=== PATIENT | female | born 1975 | race Caucasian/White ===

== ENCOUNTER 2021-04-05 13:11 | Emergency (ER) | payer OTHER ==
[~2021-04-05] VITALS: Ht 160 cm; Wt 67.0 kg
[~2021-04-05 13:11] MED LIST: AMITRIPTYLIN25 MG PO; ASPIRIN 81 LOW81 MG PO; CYCLOBENZAPRINE5 MG PO; DICLOFENAC75 MG PO; FISH OIL1 CAP PO; HYDRALAZINE10 M2 PO; LYRICA150 MG PO; PROPRAN/HCT1 PO; TRAMADOL HCL50 MG PO; VIT A & D PO; [UNRECOGNIZED DRUG - SUPPLY] PO
[2021-04-05] MEDS ORDERED: BACITRACIN500 UNIT/G TOP (13:34)
[2021-04-05] MEDS ORDERED: FLOXIN OTIC0.3 % AS (13:34)
[2021-04-05 14:04] VITALS: BP 170/79
[2021-07-27] MEDS ORDERED: ATIVAN0.5 MG PO (08:32)
[2021-07-27] MEDS ORDERED: MEDDOSEPAK PO (08:59)
== END 2021-04-05 14:00 | disposition home or self-care (01) ==
LOC: ED 13:11
DX: T24.231A Burn of second degree of right lower leg, initial encounter (principal); H60.91 Unspecified otitis externa, right ear; D89.89 Other specified disorders involving the immune mechanism, not elsewhere classified; X03.0XXA Exposure to flames in controlled fire, not in building or structure, initial encounter

== ENCOUNTER 2021-09-28 11:22 | Emergency (ER) | payer OTHER ==
[~2021-09-28] VITALS: Ht 160 cm; Wt 64.0 kg
[~2021-09-28 11:22] MED LIST changes: +ATIVAN0.5 MG PO; +BACITRACIN500 UNIT/G TOP; +FLEXERIL5 M1 PO; +FLOXIN OTIC0.3 % AS; +MEDDOSEPAK PO
[2021-09-28 12:03] LABS: HEMATOCRIT 46.7 % (37.0-47.0); HEMOGLOBIN 15.3 g/dl (12.0-16.0); IMMATURE GRANULOCYTES 0.4 % (0.0-5.0); MEAN CELL VOLUME 102.6 fL CALC (80.0-100.0); MEAN CORPUSCULAR HGB 33.6 pG CALC (26.0-32.0); MEAN CORPUSCULAR HGB CONC 32.8 g/dL CAL (32.0-36.0); NEUT# 7.39 thou/uL (2.00-7.15); RED BLOOD COUNT 4.55 mill/uL (4.20-5.60); RED CELL DISTRI WIDTH 12.4 % (11.5-15.5)
[2021-09-28 12:27] LABS: ALBUMIN 4.6 g/dL (3.2-5.0); ALKALINE PHOSPHATASE 64 u/l (38-126); ANION GAP 13 (6-22 (CALC)); BILIRUBIN, TOTAL 0.5 mg/dL (0.0-1.4); BUN 15 mg/dL (7-17); BUN/CREATININE RATIO 25 (12-20 (CALC)); CARBON DIOXIDE 24 mmol/l (22-30); CHLORIDE 107 mmol/l (95-108); CREATININE 0.6 mg/dL (0.5-1.0); GFR > 60 ML/MIN (>=60 (CALC)); GFR FOR AFR.AMER. > 60 ML/MIN (>=60 (CALC)); SGOT/AST 22 u/l (14-36); SODIUM 141 mmol/l (137-146); TOTAL PROTEIN 7.5 g/dL (6.3-8.2)
[2021-09-28 12:57] LABS: TSH, 3RD GENERATION 0.96 uIU/mL (0.47 - 4.68)
[2021-09-28 13:06] VITALS: BP 156/72
== END 2021-09-28 13:20 | disposition home or self-care (01) ==
LOC: ED 11:22
PROVIDERS: Family Medicine
DX: O99.340 Other mental disorders complicating pregnancy, unspecified trimester (principal); F41.9 Anxiety disorder, unspecified; O10.919 Unspecified pre-existing hypertension complicating pregnancy, unspecified trimester; O99.119 Other diseases of the blood and blood-forming organs and certain disorders involving the immune mechanism complicating pregnancy, unspecified trimester; D89.89 Other specified disorders involving the immune mechanism, not elsewhere classified; O99.891 Other specified diseases and conditions complicating pregnancy; M79.7 Fibromyalgia; O99.330 Smoking (tobacco) complicating pregnancy, unspecified trimester; F17.290 Nicotine dependence, other tobacco product, uncomplicated; Z3A.00 Weeks of gestation of pregnancy not specified

== ENCOUNTER 2022-01-02 13:57 | Emergency (ER) | payer MEDICARE, OTHER ==
[~2022-01-02] VITALS: Ht 160 cm; Wt 59.0 kg
[2022-01-02 15:29] VITALS: BP 128/73
== END 2022-01-02 15:34 | disposition home or self-care (01) ==
LOC: ED 13:57
DX: S86.912A Strain of unspecified muscle(s) and tendon(s) at lower leg level, left leg, initial encounter (principal); I10 Essential (primary) hypertension; D89.89 Other specified disorders involving the immune mechanism, not elsewhere classified; F17.200 Nicotine dependence, unspecified, uncomplicated; Y04.2XXA Assault by strike against or bumped into by another person, initial encounter; Y92.009 Unspecified place in unspecified non-institutional (private) residence as the place of occurrence of the external cause

== ENCOUNTER 2022-05-23 13:23 | Emergency (ER) | payer MEDICARE, MEDICAID ==
[~2022-05-23] VITALS: Ht 160 cm; Wt 65.0 kg
[2022-05-23] VITALS (7 sets, daily range): BP systolic 107–185; BP diastolic 82–127
[2022-05-23] MEDS ORDERED: KEFLEX500 MG PO (16:22)
[2022-05-23] MEDS ORDERED: PERCOCET 5/321 COMBO PO (16:22)
== END 2022-05-23 16:45 | disposition home or self-care (01) ==
LOC: ED 13:23
PROC: 0HQGXZZ Repair Left Hand Skin, External Approach (ICD-10-PCS; principal; 2022-05-23)
DX: S61.221A Laceration with foreign body of left index finger without damage to nail, initial encounter (principal); I10 Essential (primary) hypertension; M79.7 Fibromyalgia; D89.89 Other specified disorders involving the immune mechanism, not elsewhere classified; F17.290 Nicotine dependence, other tobacco product, uncomplicated; W29.3XXA Contact with powered garden and outdoor hand tools and machinery, initial encounter; Y93.H2 Activity, gardening and landscaping; Y92.007 Garden or yard of unspecified non-institutional (private) residence as the place of occurrence of the external cause

== ENCOUNTER 2022-12-05 11:52 | Emergency (ER) | payer MEDICARE, MEDICAID ==
[~2022-12-05] VITALS: Ht 167.6 cm; Wt 60.0 kg
[~2022-12-05 11:52] MED LIST changes: +KEFLEX500 MG PO; +PERCOCET 5/321 COMBO PO
[2022-12-05 12:01] VITALS: BP 173/94
[2022-12-05 13:59] LABS: URINE BILIRUBIN - DIPSTICK NEGATIVE (NEGATIVE); URINE BLOOD DIPSTICK TRACE-INTACT (NEGATIVE); URINE COLOR YELLOW; URINE GLUCOSE - DIPSTICK 250 mg/dL (NEGATIVE); URINE KETONE 40 mg/dL (NEGATIVE); URINE LEUK ESTERASE NEGATIVE (NEGATIVE); URINE PH 5.5 (4.5-8.0); URINE PROTEIN - DIPSTICK NEGATIVE (NEG-TRACE); URINE UROBILINOGEN - DIPSTICK 0.2 E.U./dL (0.2)
[2022-12-05 14:06] LABS: URINE NITRITE - DIPSTICK NEGATIVE (Negative)
[2022-12-05 14:17] LABS: BASO% 0.3 % (0-3); HEMATOCRIT 43.6 % (37.0-47.0); HEMOGLOBIN 15.2 g/dl (12.0-16.0); IMMATURE GRANULOCYTES 0.3 % (0.0-5.0); LYMPH% 12.5 % (15-41); MEAN CELL VOLUME 99.1 fL CALC (80.0-100.0); MEAN CORPUSCULAR HGB 34.5 pG CALC (26.0-32.0); MEAN CORPUSCULAR HGB CONC 34.9 g/dL CAL (32.0-36.0); MONO% 11.8 % (2-13); NEUT# 11.75 thou/uL (2.00-7.15); NEUT% 75.1 % (42-76); RED BLOOD COUNT 4.4 mill/uL (4.20-5.60); RED CELL DISTRI WIDTH 12.1 % (11.5-15.5)
[2022-12-05 14:47] LABS: ALBUMIN 5.3 g/dL (3.2-5.0); ALKALINE PHOSPHATASE 63 u/l (38-126); ANION GAP 13 (6-22 (CALC)); BILIRUBIN, TOTAL 0.4 mg/dL (0.0-1.4); BUN 13 mg/dL (7-17); BUN/CREATININE RATIO 20 (12-20 (CALC)); CARBON DIOXIDE 23 mmol/l (22-30); CHLORIDE 108 mmol/l (95-108); CREATININE 0.6 mg/dL (0.5-1.0); ETHYL ALCOHOL 0 mg/dl (0-30); GFR FOR AFR.AMER. > 60 ML/MIN (>=60 (CALC)); GFR OTHER RACES > 60 ML/MIN (>=60 (CALC)); SGOT/AST 34 u/l (14-36); SODIUM 140 mmol/l (137-146)
[2022-12-05 15:17] LABS: TSH, 3RD GENERATION 2.39 uIU/mL (0.47 - 4.68)
== END 2022-12-05 15:45 | disposition home or self-care (01) ==
LOC: EDBD 11:52 → ED 11:52
PROVIDERS: Family Medicine
DX: R53.83 Other fatigue (principal); F41.9 Anxiety disorder, unspecified; F32.A Depression, unspecified
CPT/HCPCS: J2060